=== PATIENT | female | born 1965 | race Caucasian/White ===

== ENCOUNTER → 2017-04-25 | Outpatient (CLI) | payer BC | LOC: EMI 04-23 16:45 | DX: M54.2 Cervicalgia (principal); M50.221 Other cervical disc displacement at C4-C5 level; M99.71 Connective tissue and disc stenosis of intervertebral foramina of cervical region | CPT/HCPCS: 72141 ==

== ENCOUNTER → 2021-02-07 | Outpatient (CLI) | payer BC, OTHER | LOC: KOH-I 12:32 | DX: Z47.89 Encounter for other orthopedic aftercare (principal); Z98.1 Arthrodesis status | CPT/HCPCS: 72040 ==